=== PATIENT | female | born 1995 | race Caucasian/White ===

== ENCOUNTER 2017-04-13 01:19 | Emergency (ER) | payer OTHER ==
[2017-04-13 03:42] LABS: COLOR YELLOW ((YELLOW)); GLUCOSE (STRIP) NEGATIVE; LEUKOCYTES NEGATIVE; NITRITE NEGATIVE; PROTEIN (STRIP) NEGATIVE
[2017-04-13 03:43] LABS: ADD MIUA? YES; BACTERIA NONE SEEN /HPF; BILIRUBIN NEGATIVE; BLOOD SMALL; EPITHELIAL CELLS RARE /HPF; KETONES NEGATIVE; MUCUS 2+ /LPF; RED BLOOD CELLS 0-5 /HPF (0-5); UCUL ADDED? NO; UROBILINOGEN 0.2 MG/DL (0.2-1.0); WHITE BLOOD CELLS 0-5 /HPF (0-5)
[2017-04-13] MEDS ORDERED: PRENATAL PLUS1 EAC3 PO (04:14)
[2017-04-13 04:17] LABS: HEMATOCRIT 37.6 % (36.0-46.0); MCHC 35.4 G/DL (30.0-36.0); MCV 87.6 FL (83-99); MEAN PLAT.VOLUME 9.4 uM^3 (9.5-12.4); PLATELET COUNT 325 K/uL (156-360); RBC DIS.WIDTH-SD 38.4 % (39-53); RED BLOOD COUNT 4.29 M/uL (3.80-5.20); WHITE BLOOD COUNT 9.2 K/uL (4.1-10.2)
[2017-04-13 04:28] LABS: CHLORIDE 103 mEq/L (99-109); POTASSIUM 3.5 mEq/L (3.7-5.4); SODIUM 136 mEq/L (136-147)
[2017-04-13 04:30] LABS: GLUCOSE 76 mg/dL (70-99)
[2017-04-13 04:32] LABS: ANION GAP 11 MEQ/L (2-14)
[2017-04-13 04:34] LABS: GFR ESTIMATE (CALCULATED) > 59 mL/min/
[2017-04-13 04:35] LABS: UREA NITROGEN (BUN) 6 mg/dL (9-23)
[2017-04-13 05:02] LABS: QUANTITATIVE HCG 181243.9 MIU/ML
[2017-04-13 05:51] VITALS: BP 131/69
== END 2017-04-13 05:51 | disposition home or self-care (01) ==
LOC: EME 01:19
PROVIDERS: Physician Assistant
DX: O99.89 Other specified diseases and conditions complicating pregnancy, childbirth and the puerperium (principal); R30.0 Dysuria; O20.8 Other hemorrhage in early pregnancy; Z3A.08 8 weeks gestation of pregnancy; Z88.6 Allergy status to analgesic agent
CPT/HCPCS: 76801; 80048; 81003; 84702; 85027

== ENCOUNTER 2017-06-28 14:06 | Emergency (ER) | payer OTHER ==
[~2017-06-28] VITALS: Ht 157.5 cm; Wt 45.0 kg
[~2017-06-28 14:06] MED LIST: PRENATAL PLUS1 EAC3 PO
[2017-06-28 14:38] LABS: HEMATOCRIT 38.2 % (36.0-46.0); MCH 30.3 PG (29.0-34.0); MEAN PLAT.VOLUME 10.2 uM^3 (9.5-12.4); PLATELET COUNT 276 K/uL (156-360); RBC DIS.WIDTH-CV 12.5 % (11.8-14.6); RED BLOOD COUNT 4.29 M/uL (3.80-5.20); WHITE BLOOD COUNT 9.9 K/uL (4.1-10.2)
[2017-06-28 17:16] LABS: ADD MIUA? YES; BILIRUBIN NEGATIVE; BLOOD LARGE; COLOR YELLOW ((YELLOW)); GLUCOSE (STRIP) NEGATIVE; KETONES 20; LEUKOCYTES NEGATIVE; NITRITE NEGATIVE; PROTEIN (STRIP) 100; SPECIFIC GRAVITY 1.021 (1.000-1.030); UROBILINOGEN 0.2 MG/DL (0.2-1.0)
[2017-06-28 17:33] LABS: BACTERIA NONE SEEN /HPF; EPITHELIAL CELLS RARE /HPF; HYALINE CASTS 0-5 /LPF; MUCUS 4+ /LPF; RED BLOOD CELLS TNTC /HPF (0-5); UCUL ADDED? YES; WHITE BLOOD CELLS 0-5 /HPF (0-5)
[2017-06-28 18:10] VITALS: BP 104/69
== END 2017-06-28 18:11 | disposition home or self-care (01) ==
LOC: EME 14:06
DX: R10.2 Pelvic and perineal pain (principal); N92.6 Irregular menstruation, unspecified; R42 Dizziness and giddiness; R55 Syncope and collapse; R93.8 Abnormal findings on diagnostic imaging of other specified body structures; Z87.442 Personal history of urinary calculi
CPT/HCPCS: 76856; 81003; 84702; 85027; 87086; 99281; 99284

== ENCOUNTER 2017-10-14 12:52 | Emergency (ER) | payer OTHER ==
[~2017-10-14] VITALS: Ht 157.5 cm; Wt 46.9 kg
[2017-10-14 13:11] LABS: HEMATOCRIT 40.4 % (36.0-46.0); HEMOGLOBIN 13.7 G/DL (11.9-15.5); MCH 29.5 PG (29.0-34.0); MCHC 33.9 G/DL (30.0-36.0); MCV 86.9 FL (83-99); PLATELET COUNT 269 K/uL (156-360); RBC DIS.WIDTH-CV 13.4 % (11.8-14.6); RBC DIS.WIDTH-SD 42.9 % (39-53); RED BLOOD COUNT 4.65 M/uL (3.80-5.20); WHITE BLOOD COUNT 4.4 K/uL (4.1-10.2)
[2017-10-14 13:19] LABS: ALBUMIN 4.5 g/dL (3.2-4.8)
[2017-10-14 13:20] LABS: CHLORIDE 105 mEq/L (99-109); POTASSIUM 3.7 mEq/L (3.7-5.4); SODIUM 136 mEq/L (136-147)
[2017-10-14 13:22] LABS: GLUCOSE 81 mg/dL (70-99); TOTAL PROTEIN 7.2 g/dL (6.4-8.3)
[2017-10-14 13:24] LABS: TOTAL BILIRUBIN 0.8 mg/dL (0.0-1.0)
[2017-10-14 13:25] LABS: ALKALINE PHOSPHATASE 62 IU/L (3-129)
[2017-10-14 13:26] LABS: CREATININE 0.7 mg/dL (0.6-1.3); GFR ESTIMATE (CALCULATED) > 59 mL/min/
[2017-10-14 13:27] LABS: AST (GOT) 16 IU/L (2-34); UREA NITROGEN (BUN) 9 mg/dL (9-23)
[2017-10-14 13:28] LABS: ALT (GPT) 10 IU/L (3-49)
[2017-10-14 13:35] LABS: QUANTITATIVE HCG < 4.0 MIU/ML
[2017-10-14 14:50] LABS: APPEARANCE CLEAR ((CLEAR)); BILIRUBIN NEGATIVE; BLOOD SMALL; COLOR YELLOW ((YELLOW)); GLUCOSE (STRIP) NEGATIVE; KETONES 5; LEUKOCYTES NEGATIVE; NITRITE NEGATIVE; PROTEIN (STRIP) NEGATIVE; SPECIFIC GRAVITY 1.024 (1.000-1.030); UROBILINOGEN 0.2 MG/DL (0.2-1.0)
[2017-10-14 14:54] LABS: BACTERIA NONE SEEN /HPF; EPITHELIAL CELLS NONE SEEN /HPF; MUCUS 1+ /LPF; RED BLOOD CELLS 0-5 /HPF (0-5); UCUL ADDED? NO; WHITE BLOOD CELLS 0-5 /HPF (0-5)
[2017-10-14] MEDS ORDERED: BENTYL10 MG PO (15:16)
[2017-10-14] MEDS ORDERED: ZOFRAN4 MG PO (15:16)
[2017-10-14 15:48] VITALS: BP 102/69
== END 2017-10-14 15:49 | disposition home or self-care (01) ==
LOC: EME 12:52
DX: R10.9 Unspecified abdominal pain (principal); R11.0 Nausea; Z87.442 Personal history of urinary calculi; Z88.6 Allergy status to analgesic agent
CPT/HCPCS: 74018; 80053; 81003; 84702; 85027; 99281; 99283

== ENCOUNTER 2017-12-09 12:22 | Emergency (ER) | payer OTHER ==
[~2017-12-09] VITALS: Ht 154.9 cm; Wt 48.8 kg
[~2017-12-09 12:22] MED LIST changes: +BENTYL10 MG PO; +ZOFRAN4 MG PO
[2017-12-09 12:59] LABS: HEMATOCRIT 37.5 % (36.0-46.0); HEMOGLOBIN 12.8 G/DL (11.9-15.5); MCHC 34.1 G/DL (30.0-36.0); PLATELET COUNT 299 K/uL (156-360); RBC DIS.WIDTH-SD 42.2 % (39-53); RED BLOOD COUNT 4.26 M/uL (3.80-5.20); WHITE BLOOD COUNT 7.3 K/uL (4.1-10.2)
[2017-12-09 13:14] LABS: ALBUMIN 4.2 g/dL (3.2-4.8)
[2017-12-09 13:15] LABS: CHLORIDE 105 mEq/L (99-109); POTASSIUM 3.7 mEq/L (3.7-5.4); SODIUM 138 mEq/L (136-147)
[2017-12-09 13:17] LABS: GLUCOSE 84 mg/dL (70-99); TOTAL PROTEIN 6.9 g/dL (6.4-8.3)
[2017-12-09 13:19] LABS: TOTAL BILIRUBIN 0.7 mg/dL (0.0-1.0)
[2017-12-09 13:20] LABS: ALKALINE PHOSPHATASE 64 IU/L (3-129)
[2017-12-09 13:21] LABS: CREATININE 0.6 mg/dL (0.6-1.3); GFR ESTIMATE (CALCULATED) > 59 mL/min/
[2017-12-09 13:22] LABS: AST (GOT) 13 IU/L (2-34); UREA NITROGEN (BUN) 6 mg/dL (9-23)
[2017-12-09 13:24] LABS: ALT (GPT) 10 IU/L (3-49)
[2017-12-09 14:01] LABS: QUANTITATIVE HCG 137553.2 MIU/ML
[2017-12-09 15:15] LABS: APPEARANCE CLOUDY ((CLEAR)); BILIRUBIN NEGATIVE; BLOOD NEGATIVE; COLOR YELLOW ((YELLOW)); GLUCOSE (STRIP) NEGATIVE; KETONES NEGATIVE; LEUKOCYTES NEGATIVE; NITRITE NEGATIVE; PROTEIN (STRIP) 30; SPECIFIC GRAVITY 1.023 (1.000-1.030); UROBILINOGEN 0.2 MG/DL (0.2-1.0)
[2017-12-09 15:41] LABS: RED BLOOD CELLS NONE SEEN /HPF (0-5); WHITE BLOOD CELLS NONE SEEN /HPF (0-5)
[2017-12-09 15:42] LABS: AMORPHOUS PHOSPHATE CRYSTALS 1+; BACTERIA RARE /HPF; EPITHELIAL CELLS RARE /HPF; MUCUS NONE SEEN /LPF; UCUL ADDED? NO
[2017-12-09] MEDS ORDERED: ROBITUSSIN AC,T10 ML PO (16:14)
[2017-12-09 16:23] VITALS: BP 114/59
== END 2017-12-09 16:25 | disposition home or self-care (01) ==
LOC: EME 12:22
PROVIDERS: Physician Assistant
DX: O99.511 Diseases of the respiratory system complicating pregnancy, first trimester (principal); J06.9 Acute upper respiratory infection, unspecified; Z3A.01 Less than 8 weeks gestation of pregnancy; Z87.442 Personal history of urinary calculi; Z88.6 Allergy status to analgesic agent
CPT/HCPCS: 76801; 80053; 81003; 84702; 85027; 99281; 99284

== ENCOUNTER → 2018-05-12 | Outpatient (CLI) | payer OTHER ==
[~2018-05-12] VITALS: Ht 157.5 cm; Wt 53.0 kg
[~2018-05-12] MED LIST changes: +PRENATAL TABLE1 EAC3 PO; +ROBITUSSIN AC,T10 ML PO
[2018-05-12 13:45] VITALS: BP 106/66
== END | disposition home or self-care (01) ==
LOC: IVINF 13:30
DX: Z34.83 Encounter for supervision of other normal pregnancy, third trimester (principal); Z31.82 Encounter for Rh incompatibility status; Z3A.28 28 weeks gestation of pregnancy; Z67.91 Unspecified blood type, Rh negative
CPT/HCPCS: 96372; J2790